=== PATIENT | female | born 2005 | race African-American/Black ===

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

== ENCOUNTER 2023-03-08 09:49 | Emergency (ER) | payer SELFPAY ==
[~2023-03-08] VITALS: Ht 160 cm; Wt 74.1 kg
[~2023-03-08 09:49] MED LIST changes: +AMOXICILLIN 8751 TAB PO
[2023-03-08 10:29] LABS: STREP A NEGATIVE
[2023-03-08 11:24] VITALS: BP 129/77; PULSE 98; TEMP 98.8
== END 2023-03-08 11:24 | disposition home or self-care (01) ==
LOC: COL.ER 09:49
PROVIDERS: Physician Assistant
DX: B34.9 Viral infection, unspecified (principal); R50.9 Fever, unspecified; R51.9 Headache, unspecified